=== PATIENT | female | born 1985 | race Caucasian/White ===

== ENCOUNTER → 2017-10-09 12:40 | Observation (INO) ==
--- NOTE | 2017-10-09 12:18 | OB/GYN Progress Note ---
Date of Encounter: 10/09/17 Time of Encounter: 12:15 - Assessment and Plan (1) Fall Current Visit: Yes Status: Acute We will monitor fetus externally until 12:30 As long as strip is category 1 with good heart tones we will d/c the patient with follow up with OBGYN as already planned Qualifiers: Encounter type: initial encounter Qualified Code(s): W19.XXXA - Unspecified fall, initial encounter (2) 37 weeks gestation of Current Visit: Yes Status: Acute Subjective - Subjective Principal diagnosis: Fall Interval history: 32 YO Female at 37 weeks 6 days presenting to labor and delivery with chief complaint of fall. Patient states at 830 this morning she slipped on ice and landed on her knees. Denies landing on belly or hitting head. Denies vaginal bleeding, cramping, or loss of fluid. States good movement. Antepartum ROS: movement normal, no loss of fluid, no vaginal bleeding, no contractions Objective - Vital Signs Vital Signs: Intake and Output 10/08/17 10/09/17 10/09/17 23:59 07:59 15:59 Other: Weight 108 kg Patient Weight 10/09/17 23:59 Weight 108 kg - Exam FHR: auscultation normal, category 1 Auscultation: bilateral: normal Abdomen: Present: normal appearance, soft, gravid Uterus: Present: normal (gravid)
[2017-10-09 12:58] LABS: Amphetamine Screen,Urine Negative ng/mL (Cutoff=1000); Barbiturate Screen,Urine Negative ng/mL (Cutoff=200); Benzodiazepines Screen,Urine Negative ng/mL (Cutoff=200); Cannabinoid Screen,Urine Negative ng/mL (Cutoff = 50); Cocaine Screen,Urine Negative ng/mL (Cutoff= 300); Opiate Screen,Urine Negative ng/mL (Cutoff=300); Phencyclidine Screen,Urine Negative ng/mL (Cutoff=25)
== END | disposition home or self-care (01) ==
LOC: 1NENULAB
PROVIDERS: ADMIT Obstetrics & Gynecology; ATTEND Obstetrics & Gynecology

== ENCOUNTER 2017-10-12 23:35 | Inpatient (IN) ==
[2017-10-12 15:53] LABS: Basophils % 0.2 %; Eosinophils % 0.3 %; Hemoglobin 11.8 g/dL (11.5-15.4); Immature Granulocytes % 0.5 % (0-4); Lymphocytes # 1.5 K/mcL (0.6-4.6); Lymphocytes % 12.5 %; Mean Corpuscular HGB Conc 32.8 g/dL (31.6-35.5); Mean Corpuscular Hemoglobin 28.8 pg (28.0-33.3); Mean Corpuscular Volume 87.8 fL (83.0-100.0); Mean Platelet Volume 12.4 fL (9.4-12.4); Monocytes # 0.7 K/mcL (0.0-1.3); Neutrophils # 9.8 K/mcL (1.6-8.9); Platelet Count 209 K/mcL (140-400); Red Cell Distribution Width 13.5 % (11.5-14.5); Segmented Neutrophils % 80.5 %
[2017-10-12 16:02] LABS: Protein/Creatinine Ratio,Urine 0.91 mg/mg (0.00-0.20)
[2017-10-12 16:10] LABS: Alanine Aminotransferase 9 Units/L (7-52); Aspartate Amino Transferase 11 Units/L (13-39); BUN/Creatinine Ratio 16 (6-26); Blood Urea Nitrogen 8 mg/dL (6-20); Lactate Dehydrogenase 125 Units/L (140-271); Uric Acid 3.2 mg/dL (2.3-7.6); eGFR For African Americans > 60 (> 60); eGFR For Non-African Americans > 60 (> 60)
--- NOTE | 2017-10-12 16:19 | OB/GYN History & Physical ---
Date of Encounter: 10/12/17 Time of Encounter: 16:15 Assessment and Plan (1) SROM (spontaneous rupture of membranes) Current visit: Yes Status: Acute Admit for labor Routine labor management PIH labs for mildly elevated blood pressures upon admission Patient may have nubain/epidural upon request Consider pitocin if needed for augmentation Anticipate vaginal delivery POC per consult with Dr Cloud. (2) 38 weeks gestation of Current visit: Yes Status: Acute History of Present Illness Chief complaint: Leaking fluid HPI: Ms. Gamez is a 32 year old at 38 weeks and 2 days present to labor and delivery with c/o of water breaking around 1130 this afternoon. She also states she has been antonio every 3- 5 minutes. She states positive movement. She denies vaginal bleeding/discharge, epigastric pain, headaches, and visual disturbances. She has had a normal course; last ultrasound at 37 weeks EFW >90th percentile and 3641 grams. Patient declined primary C/S. Labs GBS negative Hep B nonreactive HIV nonreactive Rubella positive Varicella positive Treponema negative Blood type O+ / Negative Past Med Surg Social Fam HX - Past Medical History Psychiatric history: no psych history - Past Surgical History Surgical History: no surgical history - Social History Smoking Status: Never smoker Smokeless Tobacco Status: No Alcohol use: none Drug use: none - Family History Mother Adopted: No Living Status: Still Living Hx Family Cardiac Disorders: No Hx Family Respiratory Disorders: No Hx Family Cancer: No Hx Family GI Disorders: No Hx Family Genitourinary Disorders: No Hx Family Endocrine Disorder: No Hx Family Musculoskeletal Disorders: No Hx Family Neuromuscular Disorders: No Hx Family Neurologic Disorders: No Hx Family HEENT Disorders: No Hx Family Autoimmune Disorders: No Hx Family Reproductive Disorders: No Hx Family Psychosocial Disorders: No Hx Family Medical Disorders: No Obstetrical History - Pregnancies : 2 Para: 1 Term: 1 : 0 Ab's: 0 Livin Medications and Allergies Ferrous Sulfate [Iron] 325 mg PO DAILY 10/09/17 [History] Vit/Iron Fumarate/FA [ Tablet] 1 tab PO DAILY 10/09/17 [History ] 3 Allergy/AdvReac Type Severity Reaction Status Date / Time No Known Allergies Allergy Verified 10/09/17 12:35 Review of System OB All systems PM: reviewed and no additional remarkable complaints except as stated Exam - Constitutional Constitutional: well developed, well nourished, no acute distress, average body habitus - HEENT HEENT: Normocephaly, Mucus Membranes Moist - Lungs Respiratory exam: CTAB - Cardiovascular Cardiovascular exam: RRR, +S1, +S2 - Abdomen Abdomen: Present: bowel sounds normal, gravid, non tender - Extremities Extremities exam: normal capillary refill, normal inspection, radial pulses palpable and symmetrical Deep Tendon Reflex Grade: 2+ Normal - Vulva Vulva: bilateral: normal - Vagina Vagina: Present: normal moisture - Cervix Dilation: 5 (Per RN exam) Effacement: 90 Station: -1 - Anus/Rectum Anus/Rectum: Present: normal perianal skin Results Result Diagrams: 10/12/17 15:40 10/12/17 15:40 Abnormal lab results WBC 12.1 K/mcL (4.3-11.1) H 10/12/17 15:40 Neutrophils # 9.8 K/mcL (1.6-8.9) H 10/12/17 15:40 Creatinine 0.51 mg/dL (0.60-1.20) L 10/12/17 15:40 AST 11 Units/L (13-39) L 10/12/17 15:40 Lactate Dehydrogenase 125 Units/L (140-271) L 10/12/17 15:40 Protein/Creatinin Ratio 0.91 mg/mg (0.00-0.20) H 10/12/17 15:40 All other labs normal. - VTE Reasons for not Prescribing Prophylaxis: Treatment not Indicated - Low risk for VTE
[2017-10-12 16:39] LABS: Amphetamine Screen,Urine Negative ng/mL (Cutoff=1000); Barbiturate Screen,Urine Negative ng/mL (Cutoff=200); Benzodiazepines Screen,Urine Negative ng/mL (Cutoff=200); Cannabinoid Screen,Urine Negative ng/mL (Cutoff = 50); Cocaine Screen,Urine Negative ng/mL (Cutoff= 300); Opiate Screen,Urine Negative ng/mL (Cutoff=300); Phencyclidine Screen,Urine Negative ng/mL (Cutoff=25)
--- NOTE | 2017-10-12 17:49 | Anesthesia Evaluation PreOp ---
Date of Encounter: 10/12/17 Time of Encounter: 16:49 - Past History Planned Operation: labor epidural Cardiac History: Denies any Significant Hx Pulmonary History: Denies Any Significant HX MEDICAL UNIT SECRETARY History: Denies Any Significant HX Other Medical History: Denies Any Significant HX, Other (0besity) Anesthesia History: No Prior Anesthetic Complications (Never had GA. No FHAP. Had previous epidural without problems.) Alcohol Use: none Drug use: none Medications and Allergies Ferrous Sulfate [Iron] 325 mg PO DAILY 10/09/17 [History] Vit/Iron Fumarate/FA [ Tablet] 1 tab PO DAILY 10/09/17 [History ] 3 Allergy/AdvReac Type Severity Reaction Status Date / Time No Known Allergies Allergy Verified 10/09/17 12:35 - Meds/Allergy Pre-op Review Medications Reviewed: Yes Allergies Reviewed: Yes Beta Blockers on Current Med List: No Anesthesia Results - Labs 10/12/17 15:40 10/12/17 15:40 Anesthesia Exam 141/98, 113, 18. FHTs 120s. Height: 5'4" Weight: 109 kg NPO (# of Hours): 4 Pain Scale: 4 Pain Scale Used: Numeric (1 - 10) - HEENT Pupil (Motor): Pupils equal, EOMI Mallampati: III Teeth: Normal Oral Opening: Greater than 3 - MEDICAL UNIT SECRETARY LOC: Oriented MEDICAL UNIT SECRETARY Motor: Normal RUE, Normal LUE, Normal RLE, Normal LLE, Normal Face MEDICAL UNIT SECRETARY Sensory: Normal: RUE, LUE, RLE, LLE, Face - Cardiac Rhythm: Regular - Pulmonary Breath Sounds: bilateral Clear, bilateral Rales, bilateral Rhonchi Respiratory Effort: Symmetrical Anesthesia Assess/Plan ASA Score: 2 Modified Nilda Scale for Level of Consciousness: Cooperative, oriented, and tranquil Anesthetic Plan: Regional Monitoring Plan: Standard Monitors
--- NOTE | 2017-10-12 17:54 | Anesthesia Procedures ---
Date of Encounter: 10/12/17 Time of Encounter: 16:49 Procedures: Anesthesia - Epidural/Spinal Patient ID/Chart reviewed: Yes Patient examined: Yes OB Eval: Gestational age: 38 OB Eval: : 2 OB Eval: Hx Para: 1 OB Eval: Contractions: Non-stressed pattern Consent Obtained: Yes Supplemental Oxygen: None/Room Air Site Prep: Aseptic Technique, Sterile prep and drape, Povidone-Iodine 1% Patient position: upright Local Anesthetic: Lidocaine 1% Amount of Local Anesthetic used: 5 Touhy Needle Gauge: 18 Touhy Needle Depth (cm): 6 Catheter Depth at Skin (cm): 18 Test Dose (1.5% Lido + Epi): Volume given (mls): 3 Test Dose Result: Negative Loading Dose: 0.25% Marcaine (mls): 8 Loading Dose: Fentanyl (mcg): 100 Loading Dose Administered: Thru Catheter Infusion Med: 0.125% Bupivacaine w/ 2 mcg/ml Fentanyl Infusion Rate (mls/hr): [address]: Tegaderm, Tape Interspace Used: L4-L5 Loss of Resistance (VINH): Yes Blood: No CSF: No Paresthesia: No Vitals + FHT's: 3 Vital Signs Time 1649 1718 1720 1725 1730 BP 142/88 142/90 131/85 124/78 123/79 Pulse 120 113 123 118 118 FHTs 120 120 120 120 120
--- NOTE | 2017-10-12 21:10 | OB/GYN Procedure Note ---
Delivery - Delivery Date: 10/12/17 Provider: Lay Traore Intrapartum events: none Delivery induction: none Delivery monitor: external FHT, external uterine Anesthesia: epidural Estimated Blood Loss: 300 - Infant (s) Infant A Delivery Date: 10/12/17 Infant Delivery Time: 20:06 Presentation: vertex Position: SHERON Route of delivery: Gender: Male Viability: Viable Pounds: 8 Ounces: 9 Weight Gram: 3890 kg at 1 minute: 9 at 5 mins: 9 Shoulder Dystocia: not encountered Specimens collected: cord blood Placenta: spontaneous Cord: 3 umbilical vessels - Repair Episiotomy: none Laceration Description: Perineal - 2nd Degree - Complications Delivery complications: none Delivery comments: Patient progressed to complete; Dr Cloud called to room due to turtle sign and EFW >90% at 37 weeks in office. Under coached pushing of viable, vigorous male infant in the SHERON position. No nuchal, no meconium, and no shoulder dystocia encountered. placed on maternal abdomen. Apgars 9 and 9 at one and five minutes of age. Cord double clamped and cut when pulsations ceased. Placenta delivered spontaneously and appears grossly intact with 3 vessel cord. Upon perineal inspection, a 0.5 cm right periclitoral hemostatic laceration was noted and left to heal by second intention. A second degree was noted and reinforced by Dr Cloud. Repair was finished in usual fashion with 3-0 Vicryl by Robert Traore CNM - hemostasis was noted after repair was complete. Fundus at U when repair complete and firm. EBL 300. Dr Cloud present in room for delivery. - Disposition Mom disposition: stable in LDR Wilder disposition: stable in LDR - Comments Comments: I attended the delivery at the request of Lay Traore CNM due to concern for a possible shoulder dystocia. There was no evidence of shoulder dystocia but a partial third degree perineal laceration was identified once the infant was delivered. The perineal laceration was visualized, the transverse perineous muscle was isolated, reapproximated with 3-0 Monocryl in a figure-of- eight fashion with 2 sutures. Good support was obtained. The rest of the repair was then turned over to AGUSTINA
[~2017-10-12 23:35] MED LIST: *HR* FentaNYL (PF) 100 MCG/2 ML VIAL EP ONE; *HR* Nalbuphine 20 MG/ML AMPUL IVP PRN; Bupivacaine-MPF 0.25% 10 ML VIAL EP ONE; Epidural Premix (fent/bupiv) 110 ML EP ONE; Epidural Premix (fent/bupiv) 110 ML EP SCH; Famotidine 20 MG/2 ML VIAL IVP PRN; Lidocaine -MPF 1% 2 ML VIAL ONE; Lidocaine 1% 20 ML MDV INFILT PRN; Naloxone 0.4 MG/ML INJ IVP PRN; Ondansetron 4 MG/2 ML VIAL IVP PRN; Oxytocin 20 units/ LR 1000 mL 20 UNIT/1,000 ML BAG IVC SCH; Ringers Solution, Lactated 1,000 ML IVC SCH
[2017-10-13] MEDS ORDERED: Rho Immune Globulin 1,500 UNIT SYRINGE IM PRN (00:27)
[2017-10-13] MEDS ORDERED: Benzocaine/Menthol 56 GM AEROSOL SPRAY TP PRN (00:27)
[2017-10-13] MEDS ORDERED: *HR* HYDROcodone/Acet 5/325 mg TABLET PO PRN (00:27)
[2017-10-13] MEDS ORDERED: Oxytocin 20 units/ LR 1000 mL 20 UNIT/1,000 ML BAG IVC SCH (00:27)
[2017-10-13] MEDS: Ibuprofen 600 MG TABLET PO SCH ×2 (00:41→07:33)
[2017-10-13 04:08] LABS: Basophils % 0.1 %; Eosinophils % 0.1 %; Hematocrit 29.4 % (35.3-44.9); Immature Granulocytes % 0.5 % (0-4); Lymphocytes # 1.2 K/mcL (0.6-4.6); Lymphocytes % 7.1 %; Mean Corpuscular Volume 87.8 fL (83.0-100.0); Mean Platelet Volume 12.4 fL (9.4-12.4); Neutrophils # 14.6 K/mcL (1.6-8.9); Platelet Count 164 K/mcL (140-400); Red Blood Count 3.35 M/mcL (3.82-4.97); Red Cell Distribution Width 13.8 % (11.5-14.5); Segmented Neutrophils % 86.2 %
[2017-10-13 04:16] LABS: Hemoglobin 9.7 g/dL (11.5-15.4)
[2017-10-13 04:33] LABS: Alanine Aminotransferase 8 Units/L (7-52); Aspartate Amino Transferase 12 Units/L (13-39); BUN/Creatinine Ratio 12 (6-26); Blood Urea Nitrogen 6 mg/dL (6-20); Uric Acid 3.6 mg/dL (2.3-7.6); eGFR For African Americans > 60 (> 60); eGFR For Non-African Americans > 60 (> 60)
[2017-10-13] MEDS ORDERED: Prenatal Vit/FA 1 EACH TABLET PO SCH (09:00)
--- NOTE | 2017-10-13 10:30 | Discharge Summary ---
Date of Encounter: 10/13/17 Time of Encounter: 08:30 - Discharge Diagnosis (1) Normal vaginal delivery Priority: Primary Status: Acute Comments: Reports she is feeling well Pain controlled with PRN ibuprofen Using ice pack, dermoplast, and tucks pads for perineal pain OOB without dizziness Voiding independently No BM yet, but passing flatus Tolerating regular diet Bottle feeding Cramping minimal Lochia light - Discharge Medications Prescriptions: Ibuprofen [Motrin] 600 mg PO Q6HR PRN #30 tablet PRN Reason: pain Docusate [Colace] 100 mg PO BID #30 capsule Ferrous Sulfate 325 mg PO DAILY #30 tablet Home Medications: Vit/Iron Fumarate/FA [ Tablet] 1 tab PO DAILY 10/09/17 [History ] Benzocaine/Menthol [place] [Dermoplast [place]] 1 appl TP QID PRN aerosol 10/13/17 [Rx] Docusate [Colace] 100 mg PO BID #30 capsule 10/13/17 [Rx] Ferrous Sulfate 325 mg PO DAILY #30 tablet 10/13/17 [Rx] Ibuprofen [Motrin] 600 mg PO Q6HR PRN #30 tablet 10/13/17 [Rx] Allergies/Adverse Reactions: 3 Allergy/AdvReac Type Severity Reaction Status Date / Time No Known Allergies Allergy Verified 10/09/17 12:35 Data Procedures and tests throughout hospitalization: Laboratory Tests 10/12/17 10/12/17 10/12/17 15:40 15:40 15:40 WBC 12.1 H RBC 4.10 Hgb 11.8 Hct 36.0 MCV 87.8 MCH 28.8 MCHC 32.8 RDW 13.5 Plt Count 209 MPV 12.4 Immature Gran % 0.5 Seg Neutrophils % 80.5 Lymphocytes % 12.5 Monocytes % 6.0 Eosinophils % 0.3 Basophils % 0.2 Neutrophils # 9.8 H Lymphocytes # 1.5 Monocytes # 0.7 Eosinophils # 0.0 Basophils # 0.0 BUN Creatinine Est GFR ( Amer) Est GFR (Non-Af Amer) BUN/Creatinine Ratio Uric Acid AST ALT Lactate Dehydrogenase Urine Creatinine 58 Protein/Creatinin Ratio 0.91 H Urine Total Protein 53 Urine Opiates Screen Negative Ur Barbiturates Screen Negative Ur Phencyclidine Scrn Negative Ur Amphetamines Screen Negative U Benzodiazepines Scrn Negative Urine Cocaine Screen Negative U Marijuana (THC) Screen Negative 10/12/17 10/13/17 10/13/17 15:40 03:58 03:58 WBC 16.9 H RBC 3.35 L Hgb 9.7 L D Hct 29.4 L MCV 87.8 MCH 29.0 MCHC 33.0 RDW 13.8 Plt Count 164 MPV 12.4 Immature Gran % 0.5 Seg Neutrophils % 86.2 Lymphocytes % 7.1 Monocytes % 6.0 Eosinophils % 0.1 Basophils % 0.1 Neutrophils # 14.6 H Lymphocytes # 1.2 Monocytes # 1.0 Eosinophils # 0.0 Basophils # 0.0 BUN 8 6 Creatinine 0.51 L 0.49 L Est GFR ( Amer) > 60 > 60 Est GFR (Non-Af Amer) > 60 > 60 BUN/Creatinine Ratio 16 12 Uric Acid 3.2 AST 11 L 12 L ALT 9 8 Lactate Dehydrogenase 125 L Urine Creatinine Protein/Creatinin Ratio Urine Total Protein Urine Opiates Screen Ur Barbiturates Screen Ur Phencyclidine Scrn Ur Amphetamines Screen U Benzodiazepines Scrn Urine Cocaine Screen U Marijuana (THC) Screen 10/13/17 03:58 WBC RBC Hgb Hct MCV MCH MCHC RDW Plt Count MPV Immature Gran % Seg Neutrophils % Lymphocytes % Monocytes % Eosinophils % Basophils % Neutrophils # Lymphocytes # Monocytes # Eosinophils # Basophils # BUN Creatinine Est GFR ( Amer) Est GFR (Non-Af Amer) BUN/Creatinine Ratio Uric Acid 3.6 AST ALT Lactate Dehydrogenase 149 Urine Creatinine Protein/Creatinin Ratio Urine Total Protein Urine Opiates Screen Ur Barbiturates Screen Ur Phencyclidine Scrn Ur Amphetamines Screen U Benzodiazepines Scrn Urine Cocaine Screen U Marijuana (THC) Screen Labs on day of discharge: Labs from last 24 hours 10/13/1718 10/13/17 03:58 03:58 03:58 WBC 16.9 H RBC 3.35 L Hgb 9.7 L D Hct 29.4 L MCV 87.8 MCH 29.0 MCHC 33.0 RDW 13.8 Plt Count 164 MPV 12.4 Immature Gran % 0.5 Seg Neutrophils % 86.2 Lymphocytes % 7.1 Monocytes % 6.0 Eosinophils % 0.1 Basophils % 0.1 Neutrophils # 14.6 H Lymphocytes # 1.2 Monocytes # 1.0 Eosinophils # 0.0 Basophils # 0.0 BUN 6 Creatinine 0.49 L Est GFR ( Amer) > 60 Est GFR (Non-Af Amer) > 60 BUN/Creatinine Ratio 12 Uric Acid 3.6 AST 12 L ALT 8 Lactate Dehydrogenase 149 Urine Creatinine Protein/Creatinin Ratio Urine Total Protein Urine Opiates Screen Ur Barbiturates Screen Ur Phencyclidine Scrn Ur Amphetamines Screen U Benzodiazepines Scrn Urine Cocaine Screen U Marijuana (THC) Screen 10/12/17 10/12/17 10/12/17 15:40 15:40 15:40 WBC 12.1 H RBC 4.10 Hgb 11.8 Hct 36.0 MCV 87.8 MCH 28.8 MCHC 32.8 RDW 13.5 Plt Count 209 MPV 12.4 Immature Gran % 0.5 Seg Neutrophils % 80.5 Lymphocytes % 12.5 Monocytes % 6.0 Eosinophils % 0.3 Basophils % 0.2 Neutrophils # 9.8 H Lymphocytes # 1.5 Monocytes # 0.7 Eosinophils # 0.0 Basophils # 0.0 BUN 8 Creatinine 0.51 L Est GFR ( Amer) > 60 Est GFR (Non-Af Amer) > 60 BUN/Creatinine Ratio 16 Uric Acid 3.2 AST 11 L ALT 9 Lactate Dehydrogenase 125 L Urine Creatinine 58 Protein/Creatinin Ratio 0.91 H Urine Total Protein 53 Urine Opiates Screen Ur Barbiturates Screen Ur Phencyclidine Scrn Ur Amphetamines Screen U Benzodiazepines Scrn Urine Cocaine Screen U Marijuana (THC) Screen 10/12/17 15:40 WBC RBC Hgb Hct MCV MCH MCHC RDW Plt Count MPV Immature Gran % Seg Neutrophils % Lymphocytes % Monocytes % Eosinophils % Basophils % Neutrophils # Lymphocytes # Monocytes # Eosinophils # Basophils # BUN Creatinine Est GFR ( Amer) Est GFR (Non-Af Amer) BUN/Creatinine Ratio Uric Acid AST ALT Lactate Dehydrogenase Urine Creatinine Protein/Creatinin Ratio Urine Total Protein Urine Opiates Screen Negative Ur Barbiturates Screen Negative Ur Phencyclidine Scrn Negative Ur Amphetamines Screen Negative U Benzodiazepines Scrn Negative Urine Cocaine Screen Negative U Marijuana (THC) Screen Negative Date of admission: 10/12/17 23:36 Consults: 10/13/17 00:27 Consult to Shell Sorter [CONS] Routine Comment: Vaginal delivery, consult needed Discharging clinician: Lay Lan Anticipated date of discharge: 10/13/17 - Patient Status Disposition: Home, Self-Care Condition: Good Functional capacity at discharge: independent ambulation Overall status at discharge: patient is progressing back to baseline - Discharge Instructions Follow Up With: Lay Lan [Advanced Practice Nurse] - - Diet and Activity Activity: increase activity as tolerated Diet: regular diet Hospital Course Reason for admission: active labor, IUP at term Delivery: Episiotomy: none Laceration: 2nd degree Other procedures: none complications: none Discharge diagnosis: IUP at term delivered [place] baby: male Time Attestation: Total time spent providing and/or coordinating discharge services: Time Spent: Less than 30 minutes Exam - Constitutional Vitals: Temp Pulse Resp BP Pulse Ox 97.6 F 109 16 131/83 96 10/13/17 07:30 10/13/17 07:30 10/13/17 09:46 10/13/17 07:30 10/13/17 04:02 General appearance IM: A&O X 3 - Respiratory Respiratory exam: Present: CTAB - Cardiovascular Cardiovascular exam IM: Present: RRR, +S1, +S2 - GI/Abdominal GI/Abdominal exam IM: normal bowel sounds, no peritoneal signs - Rectal Rectal exam: deferred - Uterine Tone: Firm Uterus Position: 1 Finger Below Umbilicus, Midline - Extremities Exam Extremities exam IM: Present: pedal edema, radial pulses palpable and symmetrical - Neurological Exam Neurological exam: alert, oriented X3 - Psychiatric Additional comments: Pt reports she is feeling well
[2017-10-13 15:17] VITALS: BP 135/89
== END 2017-10-13 21:00 | disposition home or self-care (01) | DRG 775 ==
LOC: 1NENULAB → 1NENUOBS 23:35
PROVIDERS: ADMIT Advanced Practice Midwife; ATTEND Advanced Practice Midwife